=== PATIENT | female | born 1930 | race Caucasian/White ===

== ENCOUNTER 2017-06-30 07:52 | Emergency (ER) | payer MEDICARE ==
[~2017-06-30] VITALS: Ht 153.7 cm; Wt 53.6 kg
[2017-06-30 07:52] VITALS: BP 151/71; PULSE 99; RESP 20; O2SAT 98
[~2017-06-30 07:52] MED LIST: NOMED
--- NOTE | 2017-06-30 07:53 | ED.REPORT ---
HPI-Extremity Problem Lower Date of Service Jun 30, 2017 ED Provider: Vince Noland MD Patient is an 87 year old female with a history of left hip arthroplasty and breast cancer in remission who presents to the ED via EMS due to left hip pain. Associated symptoms include pain with range of motion and difficulty walking and bearing weight due to pain. She reports that she was standing to put on her pants when she heard her hip "pop". The patient states that the pain is exacerbated with movement. Patient's friend was able to help her transfer to a chair. She denies falling or injury. Nursing Notes Stated Complaint: LEFT HIP PAIN Nursing Notes Reviewed: Yes Allergies: Coded Allergies: Opioids - Morphine Analogues (Verified Allergy, Severe, N&V, 05/29/13) codeine (Verified Allergy, Severe, N&V, 05/29/13) aspirin (Verified Adverse Reaction, Intermediate, zimmer stomach , 05/29/13) Miscellaneous Medications No Historical Medication (No Historical Medication) Ea General Time Seen by MD: 07:52 Chief Complaint Hip injury left Hx Obtained From: Patient Arrived By: Ambulance Onset Occurred: Just prior to arrival Symptom Duration: Since onset Location: : Hip left Quality: Painful Severity: Current: Moderate Associated with: Reports: "Pop" felt or heard, Unable to bear weight Exacerbated by: Range of motion, Movement Recent Healthcare: Recent doctor visit Similar Sx Previous: No Past Medical History Past Medical History breast cancer Past Surgical History left hip replacement Smoking History Unknown if Ever Smoker Ambulatory Status Independent Review of Systems Musculoskeletal: Reports: Extremity pain Neurologic: Reports: Problem walking, Denies: Numbness, Weakness Complete sys rev & neg: except as marked. Respiratory: Denies: Non-productive cough, Shortness of breath Physical Exam Initial Vital Signs Vital Signs (First) Date Time Temp Pulse Resp B/P Pulse Ox O2 Delivery O2 Flow Rate FiO2 06/30/17 07:52 36.9 99 20 151/71 98 Room Air Initial VS: Reviewed Lower Extremity / Pelvis / MS: Atraumatic, Neurologic intact, Vascular intact Ankle / Foot: Atraumatic, Inspection NL General/Constitutional: Awake, Alert Respiratory / Chest: Atraumatic, Breath sounds NL, Breath sounds = bilat, No respiratory distress Cardiovascular: Heart rate NL, Regular rhythm, Heart sounds NL Skin: Atraumatic, Color NL, No rash, Warm, Dry Neurologic: Oriented X3, Speech NL Head / Eyes: Atraumatic, Normocephalic, PERRL, EOMI Abdomen: Atraumatic, Soft, Non-tender Psychiatric: Affect NL, Mood NL Interpretation & Diagnostics X-Ray Interpretation Xray Interpretation: IMPRESSION: No visualized acute fracture or dislocation. However, if clinical concern and/or pain persist, short interval imaging followup in 7-10 days is recommended, as occult injury cannot be definitively excluded. Dictated by: Damari Carty M.D. on 06/30/2017 at 9:16 Approved by: Damari Carty M.D. on 06/30/2017 at 9:18 X-Ray Ordered: Hip left Interpretation / Wet Read by: Interpret - Radiologist Re-Eval/Medical Decision Re-Evaluation/Progress : Time of Eval: 09:25 Re-Evaluation/Progress Note: Discussed X-ray results and plan for discharge. Patient understands and agrees to plan. All questions were addressed. With the assistance of an technology lab teacher we were able to get her to a standing position and ambulatory at her about the room with the assistance of a walker. The patient was able to do this with only modest pain. I discussed the possibility of observation admission for physical therapy assessment and assistance but she has declined this. Her [place] the [place] neighbor says that she will be available to help her with transfers and ambulation. She has a walker available to her at home. Counseled Regarding: Diagnosis, Lab results, Need for follow-up, When/why to return to ED Discharge & Departure Impression: Primary Impression: Left hip pain Disposition: Home Discharge Condition All VS Reviewed: Yes Condition: Stable Patient Instructions: Contusions in Adults (ED) Additional Instructions: Your X-ray was normal and reassuring. Your hip does not appear to be dislocated or fractured. You can take Tylenol 1000 mg every 6 hours as directed for pain. Naproxen 200 mg twice daily. One half tablet of hydrocodone/APAP as needed for more severe pain. Follow up with your primary care physician next week. Return to the emergency department if you develop any new or concerning symptoms. Referrals: Bhavana Champagne MD (PCP) Scribe Attestation Portions of this note were transcribed by Ember Patricia. I, Dr. Noland personally performed the history, physical exam and medical decision-making; I reviewed and confirmed the accuracy of the information in the transcribed note. Signed by: Cameron Vaughan, 06/30/17 copies to: Bhavana Champagne MD, Kirk H MD Jun 30, 2017 07:53 Pauline Patricia Jun 30, 2017 08:00
--- NOTE | 2017-06-30 09:19 | DRSVH ---
PROCEDURE: X-RAY PELVIS W/LAT HIP (LT) ([id number]) INDICATIONS: trauma TECHNIQUE: AP pelvis with lateral view(s) of the left hip(s). COMPARISON: [facility], , XR HIP 2VW LT, 02/23/2017, 11:26. FINDINGS: Bones: No fractures or dislocations. Pelvic ring appears intact. No suspicious bony lesions. Left hip arthroplasty is present. Hardware appears intact. No visualized fracture. Soft tissues: The visualized bowel gas pattern is normal. No suspicious soft tissue calcifications. IMPRESSION: No visualized acute fracture or dislocation. However, if clinical concern and/or pain pe rsist, short interval imaging followup in 7-10 days is recommended, as occult injury cannot be defini tively excluded. Dictated by: Damari Carty M.D. on 06/30/2017 at 9:16 Approved by: Damari Carty M.D. on 06/30/2017 at 9:18
[2017-06-30] MEDS ORDERED: HYDR-4003 PO (09:41)
[2017-06-30 10:09] VITALS: BP 134/52; PULSE 74; O2SAT 98
== END 2017-06-30 10:08 | disposition home or self-care (01) ==
LOC: SED 07:52
DX: M25.552 Pain in left hip (principal); Z96.642 Presence of left artificial hip joint; Z88.5 Allergy status to narcotic agent; Z88.8 Allergy status to other drugs, medicaments and biological substances